=== PATIENT | female | born 1975 | race Caucasian/White ===

== ENCOUNTER → 2016-11-15 | Outpatient (CLI) | payer OTHER | LOC: FIMAGING 12:54 | PROVIDERS: ATTEND Midwife | DX: N64.4 Mastodynia (principal) | CPT/HCPCS: G0204 ==

== ENCOUNTER → 2016-11-22 | Outpatient (CLI) | payer OTHER | LOC: FIMAGING 08:50 | PROVIDERS: ATTEND Midwife | DX: N63 Unspecified lump in breast (principal) ==

== ENCOUNTER → 2017-11-23 | Outpatient (CLI) | payer OTHER | LOC: FIMAGING 16:27 | PROVIDERS: ATTEND Obstetrics & Gynecology | DX: Z12.31 Encounter for screening mammogram for malignant neoplasm of breast (principal) ==

== ENCOUNTER → 2018-11-13 | Outpatient (CLI) | payer OTHER | LOC: FIMAGING 15:09 | PROVIDERS: ATTEND Midwife | DX: Z12.31 Encounter for screening mammogram for malignant neoplasm of breast (principal); N64.4 Mastodynia ==